=== PATIENT | female | born 1980 | race Caucasian/White ===

== ENCOUNTER 2020-05-25 06:00 | Day surgery (SDC) | payer OTHER ==
[~2020-05-25 06:00] MED LIST: IMODIUM A-D2 MG PO; PEPCID40 MG/5 ML PO; ZOFRAN4 MG PO
== END 2020-05-29 07:14 | disposition home or self-care (01) ==
LOC: CIR.AMB 06:00
PROVIDERS: ATTEND Plastic Surgery
DX: E65 Localized adiposity (principal); M62.08 Separation of muscle (nontraumatic), other site; L30.4 Erythema intertrigo; N62 Hypertrophy of breast; Z20.822 Contact with and (suspected) exposure to COVID-19